=== PATIENT | female | born 1955 | race Caucasian/White ===

== ENCOUNTER 2016-11-27 06:49 | Day surgery (SDC) | payer BC ==
[~2016-11-27 06:49] MED LIST: Buffered Lidocaine 1% SYR 3ML* 3 ML/SYR SYRINGE INTRADERM ONE
[2016-11-27] MEDS ORDERED: Clindamycin 900 MG IVPREMIX(* 900 MG/50 ML SDV IV ONE (07:03)
[2016-11-27] MEDS ORDERED: EPINEPHrine AMP 1 MG/ML ONE (08:08)
[2016-11-27] MEDS ORDERED: Bupivacaine 0.5% W/EPI SDV* 30 ML VIAL ONE (11:30)
[2016-11-27] MEDS ORDERED: Sodium Citrate/Citric Acid* 15 ML UDC ONE (12:19)
[2016-11-27] MEDS ORDERED: Lidocaine 2% PF * 5 ML VIAL ONE (13:21)
[2016-11-27] MEDS ORDERED: Propofol* 10 MG/ML 20 ML BTL IV PUSH ONE ×2 (13:21→14:37)
[2016-11-27] MEDS ORDERED: fentaNYL* 50 MCG/ML 2 ML VIAL (100 MCG VIAL) ONE ×3 (13:26→16:04)
[2016-11-27] MEDS ORDERED: Ketorolac INJ* 30 MG/ML 1 ML VIAL ONE (14:57)
[2016-11-27] MEDS ORDERED: Ketorolac INJ* 30 MG/ML 1 ML VIAL IV PRN (14:59)
[2016-11-27] MEDS ORDERED: DiMENhydriNATE IV* 50 MG/ML VIAL IV PUSH PRN (14:59)
[2016-11-27] MEDS: fentaNYL* 50 MCG/ML 2 ML VIAL (100 MCG VIAL) IV PRN ×5 (15:02→16:05)
[2016-11-27] MEDS ORDERED: DiMENhydriNATE IV* 50 MG/ML VIAL ONE (15:06)
[2016-11-27 18:38] VITALS: BP 140/72
--- NOTE | 2016-11-29 21:29 | OP ---
DATE OF OPERATION: 11/27/16 - [facility] DATE OF : 51 SURGEON: Wesley Francis MD [employer] SCIENTIST: CHRIS Mcguire ANESTHESIOLOGIST: Dr. Olayinka Rodas. ANESTHESIA: General anesthesia. PRE-OP DIAGNOSES: 1. Right knee medial meniscal tear, posterior root. 2. Right knee mild osteoarthritis. POST-OP DIAGNOSES: 1. Right knee medial meniscal tear, posterior root. 2. Right knee [id number]-qipseuea osteoarthritis. OPERATIVE PROCEDURE: 1. Right knee arthroscopic partial medial meniscectomy. 2. Right knee anterior synovectomy, arthroscopic. IV FLUIDS: See Anesthesia note. ANTIBIOTICS: Clindamycin 900 mg IV. TOURNIQUET TIME: 29 minutes at 300 mmHg. ESTIMATED BLOOD LOSS: Minimal. COMPLICATIONS: None. SPECIMENS: None. IMPLANTS: None. INDICATIONS: The patient is a 61-year-old woman with a history of right knee, achy for many years, whose pain greatly increased during the second week of September when she had a significant amount of swelling in the posterior aspect of her right knee. At that time, she was helping her sister move. The pain was so severe that she could not walk for several days. Initially, I saw the patient in the office, diagnosed her by exam and history with a likely medial meniscal tear with some mild osteoarthritis in that knee. I treated her with a cortisone injection into the knee joint. Only because the patient insisted, I aspirated the Cook's cyst as well. I told the patient to take Tylenol as needed for pain and to reduce swelling, and I had the patient do home exercises consistent of quadriceps strengthening. The patient was scheduled to follow up in 6 weeks or as needed. However, in the interim, the patient saw her primary care doctor, Dr. Calderon. The patient had many complaints about continued pain and limp and affects on activities of daily living and so, Dr. Calderon ordered an MRI of the lower extremities centered about the right knee. This demonstrated a Cook cyst as well as a radial tear in the posterior horn of the medial meniscus near the posterior root attachment. The patient also had an ultrasound that ruled out DVT ordered by the patient's primary care physician. The patient returned to my office complaining of much disability with activities of daily living and lack of response to her nonoperative management. On examination, the patient had a mild effusion of the right knee. Range of motion was 0 to 110 degrees, flexion limited by 5 to cast contact. Positive medial joint line tenderness to palpation, but a negative Tae's test. Positive anterior compartment tenderness to palpation. The patient did have some generalized swelling about the posterior knee as well as some more focal 3 x 3 cm swelling just proximal medial to the flexion crease all consistent with Cook cyst. The patient's x-rays showed no significant degenerative changes. I read some mild tricompartmental joint space narrowing, and some small spurring in the patello-femoral compartment. The MRI readings were as listed above. The patient opted for surgical management. I booked the case as a partial medial meniscectomy versus a medial meniscal root repair. The patient's age, 61 years old, her general habitus, obese, and her preexisting achy pain argued against a root repair as did the mild degenerative changes seen on preoperative imaging. However, I wanted to make a meniscal root repair available as an option should her cartilage appear to only have a low level grade 1 or 2 changes intraoperatively. DESCRIPTION OF PROCEDURE: Preoperative written consent. Operative extremity was marked in preoperative holding. The patient was taken back to the operating room and placed supine on the operating room table. The patient was sedated and an endotracheal tube was placed. A proximal right thigh tourniquet was placed, but not yet elevated. The distal right thigh was placed in a circumferential thigh gamez. The table was elevated and the foot of the table was dropped. The right lower extremity was prepped and draped. Surgical time- out was performed. An anterior lateral knee arthroscopy portal was established using standard technique. Diagnostic arthroscopy was commenced. Patellofemoral compartment had some low grade degenerative changes. I moved on to the medial compartment. Medial meniscal tear was encountered. Anteromedial arthroscopy portal was established under direct visualization. There did appear to be a full thickness radial tear of the posterior horn of the medial meniscus near its posterior root attachment. Looking into the articular surface and medial compartment, there appeared to be grade 2 to 3 changes diffusely present. Therefore, I debrided the tear back to a stable rim. I did so using arthroscopic michelle and meniscal biters. I probed the tear and confirmed its stability after my resection. I debrided some synovitis anteriorly about the knee. I then moved to the lateral compartment. There was a small flap of meniscal tissue of the posterior horn. I debrided this with an arthroscopic shaver and then I debrided some fraying on the inner central surface through the remainder of the lateral meniscus. So, it did not require removal of significant amount of lateral meniscal tissue. ACL seemed to be intact. No unstable or significant cartilage changes in the lateral compartment were visualized. Instruments and fluid were removed from the right knee. The skin incisions were closed with [id number] stitches using nylon 4-0 suture. Xeroform, 4x4, ABD, sterile Webril, Niels bandage from foot to thigh. Tourniquet was dropped. The patient was extubated and transferred to the PACU. DISPOSITION: The patient will be weightbearing as tolerated to wean off crutches as she is able. Clindamycin, Percocet, and aspirin postoperatively. The patient will follow up with me in 10 to 14 days postoperatively. [id number]/[facility] #: [id number] MTDD
== END 2016-11-27 18:15 | disposition home or self-care (01) ==
LOC: OR 06:49
PROVIDERS: ATTEND Orthopaedic Surgery
DX: S83.241A Other tear of medial meniscus, current injury, right knee, initial encounter (principal); M17.11 Unilateral primary osteoarthritis, right knee; E66.9 Obesity, unspecified; Z68.41 Body mass index [BMI] 40.0-44.9, adult; X50.0XXA Overexertion from strenuous movement or load, initial encounter; Y92.89 Other specified places as the place of occurrence of the external cause; E83.119 Hemochromatosis, unspecified
CPT/HCPCS: 36415; 85610; 85730; A9270-GY; J0171; J1240; J1885; J2704; J3010

== ENCOUNTER 2018-12-07 10:54 | Day surgery (SDC) | payer MEDICARE ==
[~2018-12-07 10:54] MED LIST changes: -Buffered Lidocaine 1% SYR 3ML* 3 ML/SYR SYRINGE INTRADERM ONE; +Buffered Lidocaine 1% SYRIN* 1 ML/SYRINGE INTRADERM ONE; +Lactated Ringers 1000 ML Bag* 1,000 ML IV SCH
[2018-12-07] MEDS ORDERED: Propofol* 500 MG/50 ML BTL ONE (11:53)
[2018-12-07] MEDS ORDERED: Lidocaine 2% MPF* 2 ML VIAL ONE (11:54)
[2018-12-07] MEDS ORDERED: fentaNYL* 50 MCG/ML 2 ML VIAL (100 MCG VIAL) ONE (12:00)
[2018-12-07] MEDS ORDERED: Midazolam* 1 MG/ML 2 ML VIAL (2 MG) ONE (12:00)
[2018-12-07] MEDS ORDERED: Neostigmine Methylsulfate* 1 MG/ML 10 ML VIAL (1 mg/ml) ONE (12:06)
[2018-12-07] MEDS ORDERED: Cocaine 4% TOPICAL* 4 ML TOP.SOLN ONE (12:56)
[2018-12-07] MEDS ORDERED: Rocuronium* 10 MG/ML VIAL ONE (12:58)
[2018-12-07] MEDS ORDERED: Sugammadex * 500 MG/5 ML VIAL IV PUSH ONE (13:01)
[2018-12-07] MEDS ORDERED: Dexamethasone IV* 4 MG/ML 1 ML (4 MG) ONE (13:01)
[2018-12-07] MEDS ORDERED: Ketorolac INJ* 30 MG/ML 1 ML VIAL ONE (13:01)
[2018-12-07] MEDS ORDERED: Ondansetron INJ* 2 MG/ML VIAL ONE (13:01)
[2018-12-07] MEDS ORDERED: Metoclopramide IV* 5 MG/ML 2 ML VIAL ONE (13:01)
[2018-12-07] MEDS ORDERED: fentaNYL* 50 MCG/ML 2 ML VIAL (100 MCG VIAL) IV PRN (13:10)
[2018-12-07] MEDS ORDERED: Naloxone* 0.4 MG/ML 1 ML VIAL IV PRN (13:10)
[2018-12-07] MEDS ORDERED: DiMENhydriNATE IV* 50 MG/ML VIAL IV PUSH PRN (13:10)
[2018-12-07] MEDS ORDERED: Acetaminophen TAB* 325 MG PO PRN (13:10)
[2018-12-07] MEDS ORDERED: oxyCODONE TAB* 5 MG TAB PO PRN (13:10)
[2018-12-07] MEDS ORDERED: Gelfoam 12-7 ADSORBABL SPONGE* 1 EA SPONGE ONE (13:12)
[2018-12-07 15:17] VITALS: BP 127/63
--- NOTE | 2018-12-07 19:24 | OP ---
DATE OF OPERATION: 12/07/18 - [facility] DATE OF : 51 SURGEON: Dr. Perez. PRE-OP DIAGNOSIS: Left-sided nasal polyp. POST-OP DIAGNOSIS: Left-sided nasal polyp. OPERATIVE PROCEDURE: Anterior and posterior ethmoidectomy, biopsy of nasal polyp. INDICATIONS: This 63-year-old female presented with left-sided nasal congestion. Nasal endoscopy had showed a nasal polyp unilateral with a CT scan showing unilateral polyp, although there was no bony destruction and its origin was indicative of a possible neoplastic process. DESCRIPTION OF PROCEDURE: The patient was taken to the operating room, general anesthetic was given, the patient was intubated. Nose was decongested with cocaine 4% topical. Lidocaine 2% with epinephrine was then infiltrated, using the 30-degree telescope and other endoscopic sinus surgery instruments including the microshaver were utilized. Initially, we turned our attention to examine the ethmoidal bulla. The resection was carried out and posterior ethmoidal cells were identified posteriorly along the lamina papyracea and then ultimately along the skull base. A large amount of polypoidal mass was then removed and sent for permanent section. Further ethmoidectomy was carried out towards the skull base. Once adequate ethmoidectomy was carried out of the anterior and posterior on the left side, the area was packed with Gelfoam, which was soaked with Kenalog. The patient was then awakened, extubated, and sent to the recovery room in stable condition. COUNTS: Instrument and sponge counts were correct. BLOOD LOSS: Minimal. [id number]/[facility] #: [id number] MTDTato
== END 2018-12-07 15:17 | disposition home or self-care (01) ==
LOC: OR 10:54
PROVIDERS: ATTEND Otolaryngology
DX: J33.8 Other polyp of sinus (principal); I10 Essential (primary) hypertension; G47.33 Obstructive sleep apnea (adult) (pediatric); F41.8 Other specified anxiety disorders; Z85.828 Personal history of other malignant neoplasm of skin; R06.02 Shortness of breath; E66.01 Morbid (severe) obesity due to excess calories
CPT/HCPCS: 88304; 88341; 88342; A9270-GY; J1100; J1885; J2250; J2405; J2704; J2710; J2765; J3010

== ENCOUNTER 2023-06-14 06:00 | Inpatient (IN) ==
[~2023-06-14 06:00] MED LIST changes: +Buffered Lidocaine 1% SYRIN 1 ml INTRADERM ONE; -Buffered Lidocaine 1% SYRIN* 1 ML/SYRINGE INTRADERM ONE; +Famotidine IV 10 MG/ML 2 ml VIAL (20 mg) IV ONE; -Lactated Ringers 1000 ML Bag* 1,000 ML IV SCH; +Lactated Ringers 1000 ml BAG 1,000 ML IV SCH
[2023-06-14] MEDS ORDERED: ceFAZolin 2 GM in NS PREMIX 2 GM/100 ML BAG IVPB ONE (06:22)
[2023-06-14] MEDS ORDERED: Famotidine IV 10 MG/ML 2 ml VIAL (20 mg) ONE (06:22)
[2023-06-14 06:49] LABS: Rapid COVID-19 Molecular Undetected (Undetected)
[2023-06-14] MEDS ORDERED: Lidocaine 1% w EPI 1:100,000 MDV 20 ML VIAL ONE (07:03)
[2023-06-14] MEDS ORDERED: Bupivacaine 0.5% SDV PF 30ML VIAL ONE (07:03)
[2023-06-14] MEDS ORDERED: Vancomycin 1,000 MG VIAL ONE (07:04)
[2023-06-14] MEDS ORDERED: Midazolam 2 mg/2 ml VIAL 1 mg/ml 2 ml VIAL (2 mg) ONE (07:12)
[2023-06-14] MEDS ORDERED: ROPIVACAINE 5 MG/ML 30 ML BTL (0.5%) ONE (07:24)
[2023-06-14] MEDS ORDERED: fentaNYL 100 mcg/2 ml 50 MCG/ML VIAL ONE ×4 (07:24→10:58)
[2023-06-14] MEDS ORDERED: Lidocaine 2% PF 5 ML VIAL ONE (07:27)
[2023-06-14] MEDS ORDERED: Rocuronium 50 mg VIAL 10 mg/ml 5 ml VIAL (50 mg) ONE (07:27)
[2023-06-14] MEDS ORDERED: Ondansetron 4 mg VIAL 2 MG/ML 2 ml VIAL ONE ×2 (08:30→12:09)
[2023-06-14] MEDS ORDERED: Dexamethasone IV 4 MG/ML VIAL 1 ml VIAL ONE (08:30)
[2023-06-14] MEDS ORDERED: Acetaminophen IV 1 GM/100ML 1,000 MG/100 ML BAG IV ONE (08:30)
[2023-06-14] MEDS ORDERED: fentaNYL 100 mcg/2 ml 50 MCG/ML VIAL IV PRN (08:38)
[2023-06-14] MEDS ORDERED: Naloxone 0.4 mg VIAL 0.4 mg/ml 1 ml VIAL IV PRN (08:38)
[2023-06-14] MEDS ORDERED: Ondansetron 4 mg VIAL 2 MG/ML 2 ml VIAL IV PRN ×2 (08:38→09:55)
[2023-06-14] MEDS ORDERED: Lactulose 30 ml UDC PO PRN (09:55)
[2023-06-14] MEDS ORDERED: Ondansetron ODT 4 mg TAB 4 MG TAB PO PRN (09:55)
[2023-06-14] MEDS ORDERED: Morphine 2 MG/ML SYRINGE IV PRN (09:55)
[2023-06-14] MEDS ORDERED: Magnesium Hydroxide LIQ 30 ML UDC PO PRN (09:55)
[2023-06-14] MEDS ORDERED: HYDROmorphone 0.5 MG/0.5 ML SYRINGE ONE (09:58)
[2023-06-14] MEDS ORDERED: Lactated Ringers 1000 ml BAG 1,000 ML IV SCH (10:00)
[2023-06-14] MEDS ORDERED: Prochlorperazine 5 mg/ml 2 ml VIAL (10 mg) ONE ×2 (12:07→12:35)
[2023-06-14] MEDS ORDERED: Metoprolol Tartrate 5 mg VIAL 5 ml VIAL (1 mg/ml) IV PRN (12:15)
[2023-06-14] MEDS ORDERED: Metoprolol Tartrate 5 mg VIAL 5 ml VIAL (1 mg/ml) ONE (12:22)
[2023-06-14] MEDS: ceFAZolin 1 GM ADVAN 1 GM in NS 0.9% 50 ML 50 ML IVPB SCH (16:21)
[2023-06-14] MEDS: Magnesium Hydroxide LIQ 30 ML UDC PO SCH (21:08)
[2023-06-15] MEDS: ceFAZolin 1 GM ADVAN 1 GM in NS 0.9% 50 ML 50 ML IVPB SCH ×2 (00:50→07:35)
[2023-06-15 07:17] LABS: Hematocrit 36.4 % (35-45); Hemoglobin 12.8 g/dL (11.5-14.3); Mean Platelet Volume 8.1 fL (7.5-11.2); Platelet Count 221 10^3/uL (150-450)
[2023-06-15 07:36] LABS: Calcium 8.4 mg/dL (8.6-10.3); Creatinine, Serum 1.03 mg/dL (0.51-0.95); Potassium 4.3 mmol/L (3.5-5.0); eGFR CKD-EPI 58.9 (>60)
[2023-06-15] MEDS: Magnesium Hydroxide LIQ 30 ML UDC PO SCH (07:41)
[2023-06-15] MEDS ORDERED: Vitamin THERAPEUTIC TAB PO SCH (09:00)
[2023-06-15 10:45] VITALS: BP 109/68
== END 2023-06-15 14:00 | disposition home or self-care (01) | DRG 470 ==
LOC: AA 06:00 → INTOOBSV 06:00 → SSU 13:19
PROVIDERS: ADMIT Orthopaedic Surgery; ATTEND Orthopaedic Surgery